=== PATIENT | male | born 1990 | race Caucasian/White ===

== ENCOUNTER 2021-06-16 11:45 | Emergency (ER) | payer OTHER, SELFPAY ==
--- NOTE | ~2021-06-16 | XR_ITS ---
EXAMINATION: 1. RADIOGRAPHS RIGHT ANKLE 2. RADIOGRAPHS RIGHT FOOT CLINICAL INFORMATION: Right foot injury COMPARISON: None TECHNIQUE: 3 views of the right ankle and 3 views of the right foot were obtained. FINDINGS: Visualized portion of the distal tibia and fibula demonstrate no fracture. Ankle mortise is well-maintained. No focal soft tissue swelling of the ankle. No gross ankle joint effusion. Bones of the midfoot are well aligned. No tarsal, metatarsal or phalangeal fracture. No focal soft tissue swelling of the foot. XR/XR ankle RT min 3V IMPRESSION: Unremarkable radiographs of the right ankle and foot.
--- NOTE | ~2021-06-16 | XR_ITS ---
EXAMINATION: 1. RADIOGRAPHS RIGHT ANKLE 2. RADIOGRAPHS RIGHT FOOT CLINICAL INFORMATION: Right foot injury COMPARISON: None TECHNIQUE: 3 views of the right ankle and 3 views of the right foot were obtained. FINDINGS: Visualized portion of the distal tibia and fibula demonstrate no fracture. Ankle mortise is well-maintained. No focal soft tissue swelling of the ankle. No gross ankle joint effusion. Bones of the midfoot are well aligned. No tarsal, metatarsal or phalangeal fracture. No focal soft tissue swelling of the foot. XR/XR foot RT min 3V IMPRESSION: Unremarkable radiographs of the right ankle and foot.
[2021-06-16 11:48] VITALS: BP 117/77; PULSE 97; RESP 17; TEMP 36.7; O2SAT 98; BMI 20.4
[2021-06-16] MEDS: Ibuprofen 600 MG TABLET PO (12:16)
--- NOTE | 2021-06-16 12:31 | ED.LOWEXIN ---
HPI - Extremity Injury (Lower) General Chief Complaint: Extremity Injury, Lower Stated Complaint: rt foot injury Time Seen by Provider: 06/16/21 12:11 Source: patient Mode of arrival: ambulatory Limitations: no limitations History of Present Illness HPI Narrative: 30 y/o male presenting with right ankle and foot pain after a skateboarding accident last night. He fell off of a ramp and his right foot bent underneath him. He is barely able to walk on it. He iced it all ngiht but had trouble sleeping. He woke up this morning with increased swelling, bruising and persistent pain with ambulation so he came to the ER for evaluation. MD complaint: ankle injury and foot injury Onset (ago): day(s) (1) Injury: Right: foot Type of Injury: hyperflexion Place: street/outdoors Severity: moderate Severity scale (1-10): 6 Relieving factors: NSAID and rest Exacerbating factors: weight bearing and palpation Context: fall Associated symptoms: snap/pop sensation, swelling and able to partially bear weight Other symptoms: none Treatments prior to arrival: cold therapy Related Data Allergies Allergy/AdvReac Type Severity Reaction Status Date / Time No Known Allergies Allergy Verified 06/16/21 11:46 Review of Systems Review of Systems: Constitutional: No Fever, No Chills Cardiovascular: No Chest Pain, No SOB Respiratory: No Cough, No Sputum Gastrointestinal: No Nausea, No Vomiting Musculoskeletal: + joint pain, No Myalgias Skin: No Skin Lesions, No rash Neuro: No Weakness, No Numbnesse Heme/Lymph: + Bruising PMFSH Past Medical History Attestation statement: The following information was validated with the patient. Medical History No pertinent past medical history Social History Social History Advance Directives: No Advance Directives Information Provided: No Physical Exam Vital Signs: Vital Signs: Last Vital Signs Temp 98.1 F 06/16/21 11:48 Pulse 97 06/16/21 11:48 Resp 17 06/16/21 11:48 BP 117/77 06/16/21 11:48 Pulse Ox 98 06/16/21 11:48 Body Mass Index 20.4 Appearance: Alert. Oriented X3. No acute distress. HEENT: normal inspection CVS: Normal heart rate and rhythm. Pulses normal. Respiratory: No respiratory distress. Skin: Skin warm and dry. Normal skin color. Normal skin turgor. No rashes. Extremities: right foot with moderate swelling and ecchymosis to the top of his foot, mild tenderness along all metatarsals. no crepitus. normal ROM of all toes and ankle. ankle without swelling or tenderness. NV intact distally. ambulates with limp. Neuro: Oriented X 3. No motor deficit. No sensory deficit. Course Course Course Narrative: 30 y/o presenting with right foot pain after skateboarding injury last night. Exam has moderate ecchymosis along the entire foot, mild swelling. XR is negative for fracutre. No wounds. Most likely contusion from his injury. Placed in BERONICA for compression and comfort. Stable for d/c home with crutches and NSAIDS. Critical Care Time Critical Care Time Critical Care Time: No Discharge Plan Discharge Clinical Impression: Contusion Qualifiers: Encounter type: initial encounter Contusion area: foot Laterality: right Qualified Code(s): S90.31XA - Contusion of right foot, initial encounter Patient Disposition: Home, Self-Care Instructions: Foot Contusion (ED) Additional Instructions: Your x-ray today was normal. Rest your foot/ankle and elevate your foot when possible. Recommend BERONICA wrap for support and compression. Use ice several times per day for the next 48 hours. You may bear weight as tolerated. If pain is too severe, use crutches until better. Take Motrin and/or Tylenol as needed for pain. Follow up with your doctor as needed.
== END 2021-06-16 13:27 | disposition home or self-care (01) ==
PROVIDERS: Emergency Provider Emergency Medicine
DX: S90.31XA Contusion of right foot, initial encounter (principal); M25.571 Pain in right ankle and joints of right foot; M25.471 Effusion, right ankle; W01.0XXA Fall on same level from slipping, tripping and stumbling without subsequent striking against object, initial encounter; Y93.9 Activity, unspecified; Y92.9 Unspecified place or not applicable; Y99.9 Unspecified external cause status
CPT/HCPCS: 73610; 73630; 99284

== ENCOUNTER 2021-11-11 19:55 | Emergency (ER) | payer OTHER, SELFPAY ==
--- NOTE | ~2021-11-11 | CT_ITS ---
EXAMINATION: CT ABDOMEN AND PELVIS WITH CONTRAST CLINICAL INFORMATION: Left lower quadrant pain. Question diverticulitis. COMPARISON: None TECHNIQUE: Multidetector volumetric images were obtained from the superior aspect of the liver through the pubic symphysis following administration 85 mL of Omnipaque 350 intravenous contrast. Sagittal and coronal reformatted images were obtained on the technologist's workstation. Oral contrast: No This CT examination was performed using dose optimization techniques as appropriate, variously including the following: *Automated exposure control *Adjustment of mA and/or kV according to patient size (this includes techniques or standardized protocols for targeted exams where dose is matched to indication/reason for exam; i.e. extremities or head) *Use of iterative reconstruction technique DLP: 393 mGy-cm FINDINGS: LUNG BASES: The visualized lung bases are unremarkable. LIVER, GALLBLADDER, AND BILIARY TREE: The liver is normal in size, shape, and attenuation. No focal hepatic lesion or biliary ductal dilatation is present. The gallbladder is unremarkable with no evidence of radiopaque gallstones, gallbladder wall thickening, or obvious pericholecystic inflammatory changes. PANCREAS: Unremarkable. SPLEEN: Unremarkable. ADRENAL GLANDS: Unremarkable. KIDNEYS AND URETERS: The kidneys are normal in size, shape, and attenuation. Rotated position of the right kidney. No hydronephrosis, hydroureter, or calculi seen. No perinephric stranding. BLADDER: Unremarkable. GASTROINTESTINAL TRACT: The stomach is unremarkable. Normal caliber small bowel. No obstruction. Normal appendix. There is colonic diverticulosis present. There is prominent wall thickening with significant adjacent inflammation involving the descending colon, consistent with diverticulitis. No free air. No definite fluid collection. ABDOMINAL WALL: No significant hernia is appreciated. LYMPH NODES: Normal. VASCULAR: Unremarkable. PELVIC VISCERA: The prostate and seminal vesicles are unremarkable. OSSEOUS STRUCTURES: No acute or suspicious osseous abnormality. CT/CT abdomen pelvis w con IMPRESSION: Acute diverticulitis of the descending colon. No free air. Prominent inflammation, though no definite fluid collection. Fleischner guidelines were followed.
[2021-11-11 20:10] VITALS: BP 139/77; PULSE 94; RESP 16; TEMP 37.1; O2SAT 97; BMI 21.1
[2021-11-11 20:33] LABS: MANUAL DIFF FLAG NO
[2021-11-11 20:43] LABS: Basophils Percent Auto 0.3 % (0-2); Eosinophils Absolute Auto 0.2 X10*3/uL (0.0-0.4); Eosinophils Percent Auto 1.5 % (0-4); Hematocrit 40.5 % (42.0-52.0); Imm Gran Abs Auto 0.06 X10*3/uL (0.00-0.03); Imm Gran Pct Auto 0.5 % (0.0-0.4); Lymphocytes Absolute Auto 1.1 X10*3/uL (1.2-4.9); Lymphocytes Percent Auto 8.8 % (20-40); Mean Corpuscular HGB Conc 34.6 g/dl (31.0-36.0); Mean Corpuscular Hemoglobin 32.3 pg (27.0-33.0); Mean Corpuscular Volume 93.3 fL (80.0-98.0); Mean Platelet Volume 10.9 fL (9.4-12.4); Monocytes Absolute Auto 1.4 X10*3/uL (0.1-1.2); Monocytes Percent Auto 10.7 % (2-11); Neutrophils Percent Auto 78.2 % (45-73); Platelet Count 153 X10*3/uL (160-400); Red Blood Count 4.34 X10*6/uL (4.60-5.80); Red Cell Distribution Width 11.3 % (11.0-16.0); White Blood Count 12.8 X10*3/uL (4.8-10.8)
[2021-11-11 20:49] LABS: COVID-19 Test Negative (Negative)
[2021-11-11 20:50] LABS: Lactic Acid 0.6 mmol/L (0.5-2.0)
[2021-11-11 20:52] LABS: Appearance Urine CLEAR; Color Urine YELLOW; Glucose Urine UA NEG (NEG); Leukocyte Esterase Urine NEG (NEG); Nitrite Urine NEG (NEG); Specific Gravity - Urine <= 1.005 (1.005-1.025); UACC Culture Trigger NO; Urine Blood 1+ (NEG); Urine Ketones NEG (NEG); Urine Protein NEG (NEG-TRACE)
[2021-11-11 20:55] LABS: Alanine Aminotransferase 11 U/L (0-40); Albumin Level 4.2 g/dL (3.5-5.0); Alkaline Phosphatase 60 U/L (39-117); Anion Gap 11 (12-20); Aspartate Amino Transferase 16 U/L (5-37); Bilirubin Total 1.3 mg/dL (0.0-1.0); Blood Urea Nitrogen 19 mg/dL (9-16); Calcium 9.3 mg/dL (8.4-10.2); Carbon Dioxide 25 mmol/L (22-29); Chloride 105 mmol/L (96-108); Creatinine Clr Calc Pharmacy 96.4; Estimated Glomerular Filt Rate > 60; Glucose Random 121 mg/dL (60-115); Sodium 137 mmol/L (135-145); Total Protein 7.1 g/dL (6.5-8.0)
[2021-11-11 21:31] LABS: WBC Urine 0-2 /HPF (0-4)
[2021-11-11 21:32] LABS: Squamous Epithelial Cell Urine TRACE /LPF
--- NOTE | 2021-11-11 23:06 | ED_ITS ---
HPI - Abdominal Pain General Chief Complaint: Abdominal Pain Stated Complaint: abd pain, fever Time Seen by Provider: 11/11/21 23:06 Source: patient Mode of arrival: ambulatory Limitations: no limitations History of Present Illness HPI narrative: Patient no significant past medical history complaining of left lower abdominal pain since yesterday subjective fever last night no nausea no vomiting or diarrhea pain localized to left lower quadrant increases while moving the bowels been constipated for last 2 days since the pain started pain got worse tonight while walking no blood in the stool. Patient's brother who is 5 years older to him does have a history of diverticulitis Related Data Previous Rx's Medication Instructions Recorded levofloxacin 500 mg tablet 500 mg PO DAILY 10 Days #10 tab 11/12/21 metronidazole 500 mg tablet 500 mg PO TID #30 tab 11/12/21 tramadol 50 mg tablet 50 mg PO Q6H PRN #20 tab 11/12/21 Allergies Allergy/AdvReac Type Severity Reaction Status Date / Time No Known Allergies Allergy Verified 11/11/21 20:10 Review of Systems Review of Systems Yes all other systems are reviewed and are negative Physical Exam Vital Signs: Vital Signs: Last Vital Signs Temp 98.8 F 11/11/21 20:10 Pulse 84 11/12/21 01:05 Resp 16 11/12/21 01:05 BP 128/83 11/12/21 01:05 Pulse Ox 98 11/12/21 01:05 BMI result Body Mass Index 21.1 Appearance: Alert. Oriented X3. No acute distress. Eyes: PERRLA, No Nystagmus ENT: Pharynx normal. Oral Mucosa moist Neck: Normal inspection. Neck supple. CVS: Normal heart rate and rhythm. Pulses normal. Respiratory: No respiratory distress. Equal air entry bilateral, no wheezing/rales/rhonchi Abdomen: Soft , deep left lower quadrant tenderness no rebound tenderness, + guarding , Bowel sounds are present, no mass palpable, no CVA tenderness Skin: Skin warm and dry. Normal skin color. Normal skin turgor. Extremities: No lower extremity edema. No calf tenderness Neuro: Oriented X 3. MDM - Abdominal Pain MDM Narrative Medical decision making narrative: Patient with acute diverticulitis with slightly elevated WBC count normal lactic acid level uncomplicated diverticulitis will give him a dose of Zosyn here in the ER discharge him on Flagyl and Levaquin Lab Data Attestation: I reviewed the patient's lab results. Result diagrams: 11/11/21 20:29 11/11/21 20:29 Labs: Lab Results 11/11/21 11/11/21 11/11/21 Range/Units 20:29 20:29 20:29 WBC 12.8 H (4.8-10.8) X10*3/uL RBC 4.34 L (4.60-5.80) X10*6/uL Hgb 14.0 (14.0-18.0) g/dl Hct 40.5 L (42.0-52.0) % MCV 93.3 (80.0-98.0) fL MCH 32.3 (27.0-33.0) pg MCHC 34.6 (31.0-36.0) g/dl RDW 11.3 (11.0-16.0) % Plt Count 153 L (160-400) X10*3/uL MPV 10.9 (9.4-12.4) fL Immature Gran % (Auto) 0.5 H (0.0-0.4) % Neut % (Auto) 78.2 H (45-73) % Lymph % (Auto) 8.8 L (20-40) % [place] % (Auto) 10.7 (2-11) % Eos % (Auto) 1.5 (0-4) % Baso % (Auto) 0.3 (0-2) % Lymph # (Auto) 1.1 L (1.2-4.9) X10*3/uL [place] # (Auto) 1.4 H (0.1-1.2) X10*3/uL Eos # (Auto) 0.2 (0.0-0.4) X10*3/uL Baso # (Auto) 0.0 (0.0-0.2) X10*3/uL Abs Immat Gran (auto) 0.06 H (0.00-0.03) X10*3/uL Absolute Neuts (auto) 10.0 H (2.0-8.3) x10*3/uL Absolute Nucleated RBC 0.000 (0.0-0.012) X10*3/uL Nucleated RBC % (auto) 0.0 (0.0-0.2) /100WBC Sodium 137 (135-145) mmol/L Potassium 4.0 (3.3-5.1) mmol/L Chloride 105 (96-108) mmol/L Carbon Dioxide 25 (22-29) mmol/L Anion Gap 11 L (12-20) BUN 19 H (9-16) mg/dL Creatinine 1.15 (0.5-1.4) mg/dL Estim Creat Clear Calc 96.4 Estimated GFR > 60 Random Glucose 121 H (60-115) mg/dL Lactic Acid 0.6 (0.5-2.0) mmol/L Calcium 9.3 (8.4-10.2) mg/dL Total Bilirubin 1.3 H (0.0-1.0) mg/dL AST 16 (5-37) U/L ALT 11 (0-40) U/L Alkaline Phosphatase 60 (39-117) U/L Total Protein 7.1 (6.5-8.0) g/dL Albumin 4.2 (3.5-5.0) g/dL Urine Color Urine Appearance Urine pH (5.0-8.0) Ur Specific [place] (1.005-1.025) Urine Protein (NEG-TRACE) MG/DL Urine Glucose (UA) (NEG) MG/DL Urine Ketones (NEG) MG/DL Urine Blood (NEG) Urine Nitrite (NEG) Ur Leukocyte Esterase (NEG) Urine RBC (0) /HPF Urine WBC (0-4) /HPF Ur Squamous Epith Cells /LPF Urine Bacteria /LPF COVID-19 ([facility]HA) (Negative) COVID-19 Clin Com 11/11/21 11/11/21 Range/Units 20:29 20:34 WBC (4.8-10.8) X10*3/uL RBC (4.60-5.80) X10*6/uL Hgb (14.0-18.0) g/dl Hct (42.0-52.0) % MCV (80.0-98.0) fL MCH (27.0-33.0) pg MCHC (31.0-36.0) g/dl RDW (11.0-16.0) % Plt Count (160-400) X10*3/uL MPV (9.4-12.4) fL Immature Gran % (Auto) (0.0-0.4) % Neut % (Auto) (45-73) % Lymph % (Auto) (20-40) % [place] % (Auto) (2-11) % Eos % (Auto) (0-4) % Baso % (Auto) (0-2) % Lymph # (Auto) (1.2-4.9) X10*3/uL [place] # (Auto) (0.1-1.2) X10*3/uL Eos # (Auto) (0.0-0.4) X10*3/uL Baso # (Auto) (0.0-0.2) X10*3/uL Abs Immat Gran (auto) (0.00-0.03) X10*3/uL Absolute Neuts (auto) (2.0-8.3) x10*3/uL Absolute Nucleated RBC (0.0-0.012) X10*3/uL Nucleated RBC % (auto) (0.0-0.2) /100WBC Sodium (135-145) mmol/L Potassium (3.3-5.1) mmol/L Chloride (96-108) mmol/L Carbon Dioxide (22-29) mmol/L Anion Gap (12-20) BUN (9-16) mg/dL Creatinine (0.5-1.4) mg/dL Estim Creat Clear Calc Estimated GFR Random Glucose (60-115) mg/dL Lactic Acid (0.5-2.0) mmol/L Calcium (8.4-10.2) mg/dL Total Bilirubin (0.0-1.0) mg/dL AST (5-37) U/L ALT (0-40) U/L Alkaline Phosphatase (39-117) U/L Total Protein (6.5-8.0) g/dL Albumin (3.5-5.0) g/dL Urine Color YELLOW Urine Appearance CLEAR Urine pH 7.0 (5.0-8.0) Ur Specific [place] <= 1.005 (1.005-1.025) Urine Protein NEG (NEG-TRACE) MG/DL Urine Glucose (UA) NEG (NEG) MG/DL Urine Ketones NEG (NEG) MG/DL Urine Blood 1+ H (NEG) Urine Nitrite NEG (NEG) Ur Leukocyte Esterase NEG (NEG) Urine RBC 1-4 (0) /HPF Urine WBC 0-2 (0-4) /HPF Ur Squamous Epith Cells TRACE /LPF Urine Bacteria NONE /LPF COVID-19 ([facility]ABHA) Negative (Negative) COVID-19 Clin Com See Note Imaging Data CT scan - abdomen: Radiologist's impression: CT/CT abdomen pelvis w con IMPRESSION: Acute diverticulitis of the descending colon. No free air. Prominent inflammation, though no definite fluid collection.? ? Fleischner guidelines were followed. Discharge Plan Discharge Clinical Impression: Diverticulitis Patient Disposition: Home, Self-Care Instructions: Diverticulitis (ED) Additional Instructions: Drink plenty of fluids Liquid diet advance slowly as tolerated Antibiotic and pain medication as advised Report to the ER if increased pain/fever/vomiting Prescriptions: New levofloxacin 500 mg tablet 500 mg PO DAILY 10 Days Qty: 10 RF: 0 metronidazole 500 mg tablet 500 mg PO TID Qty: 30 RF: 0 tramadol 50 mg tablet 50 mg PO Q6H PRN (Reason: pain) Qty: 20 RF: 0 PMFSH Past Medical History Medical History No pertinent past medical history Social History Social History Advance Directives: No Advance Directives Information Provided: Yes
--- NOTE | 2021-11-11 23:09 | PC.NURSE ---
Pt's son, Wilfredo,
[2021-11-11] MEDS: 0.9 % Sodium Chloride 1,000 ML 999 ML IV (23:53)
[2021-11-12] MEDS: iohexoL 350 MG/ML 100 ML INFUS..BTL 85 ML IV (00:54)
[2021-11-12 01:05] VITALS: BP 128/83; PULSE 84; RESP 16; O2SAT 98
[2021-11-12] MEDS: bisacodyL 5 MG TABLET.DR 10 MG PO (01:06)
[2021-11-12] MEDS: Milk of Magnesia 30 ML ORAL.SUSP PO (01:06)
[2021-11-12] MEDS: Piperacillin Sodium/Tazobactam 3.375 GM in 0.9 % Sodium Chloride 50 ML IV (01:38)
[2021-11-12] MEDS: Ketorolac Tromethamine 30 MG/ML VIAL IVPUSH (01:38)
== END 2021-11-12 02:09 | disposition home or self-care (01) ==
PROVIDERS: Emergency Provider Internal Medicine
DX: K57.92 Diverticulitis of intestine, part unspecified, without perforation or abscess without bleeding (principal); Z20.822 Contact with and (suspected) exposure to COVID-19; R10.32 Left lower quadrant pain
CPT/HCPCS: 74177; 80053; 81001; 83605; 85025; 87635; 96361; 96365; 96375; 99283; 99284; J1885; J2543; Q9967

== ENCOUNTER 2022-09-17 11:46 | Emergency (ER) | payer OTHER, SELFPAY ==
[2022-09-17 13:24] VITALS: BP 126/80; PULSE 74; RESP 17; TEMP 36.8; O2SAT 98; BMI 21.1
--- NOTE | 2022-09-17 13:33 | ED.EYEPROB ---
HPI - Eye Problem General Chief complaint: Eye Problems Stated complaint: L eye inj Related Data Previous Rx's Medication Instructions Recorded levofloxacin 500 mg tablet 500 mg PO DAILY 10 days #10 tabs 11/12/21 metronidazole 500 mg tablet 500 mg PO TID #30 tabs 11/12/21 tramadol 50 mg tablet 50 mg PO Q6H PRN pain #20 tabs 11/12/21 Allergies Allergy/AdvReac Type Severity Reaction Status Date / Time No Known Allergies Allergy Verified 11/11/21 20:10 [facility] Past Medical History Medical History No pertinent past medical history Social History Social History Advance Directives: No Advance Directives Information Provided: No Physical Exam Vital Signs: Vital Signs: Last Vital Signs Temp 98.3 F 09/17/22 13:24 Pulse 74 09/17/22 13:24 Resp 17 09/17/22 13:24 BP 126/80 09/17/22 13:24 Pulse Ox 98 09/17/22 13:24 O2 Del Method 09/17/22 13:24 BMI result Body Mass Index 21.1 Course Course Course Narrative: RME: 31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 States his last tetanus shot was greater than 6 years prior pain. Patient appears to be uncomfortable secondary to his eye pain, the patient is alert scope injected, no obvious foreign body visualized. Patient was ordered to get a Tdap, he will need visual acuity and evaluation for abrasion. Discharge Plan Discharge Clinical Impression: Left eye injury Patient Disposition: Elopement Prescriptions: No Action levofloxacin 500 mg tablet 500 mg PO DAILY 10 Days Qty: 10 0RF metronidazole 500 mg tablet 500 mg PO TID Qty: 30 0RF tramadol 50 mg tablet 50 mg PO Q6H PRN (Reason: pain) Qty: 20 0RF Interventions: ED Discharge Assessment Last Done: 09/17/22 21:35 Discharge Date/Time: 09/17/22 22:11
--- NOTE | 2022-09-17 21:33 | PC.NURSE ---
pt not in waiting room at this time.
== END 2022-09-17 22:11 | disposition left against medical advice (07) ==
LOC: HO.ED 21:53
PROVIDERS: Emergency Provider Emergency Medicine; PCP Internal Medicine
DX: H57.12 Ocular pain, left eye (principal); S05.92XA Unspecified injury of left eye and orbit, initial encounter; X58.XXXA Exposure to other specified factors, initial encounter; Y93.H9 Activity, other involving exterior property and land maintenance, building and construction; Y92.59 Other trade areas as the place of occurrence of the external cause; Y99.0 Civilian activity done for income or pay
CPT/HCPCS: 99282